=== PATIENT | male | born 2000 | race African-American/Black ===

== ENCOUNTER 2021-03-03 04:00 | Emergency (ER) | payer MEDICAID ==
[~2021-03-03] VITALS: Ht 182.9 cm; Wt 90.9 kg
[2021-03-03 04:06] VITALS: BP 131/78
== END 2021-03-03 06:02 | disposition home or self-care (01) ==
LOC: ER 04:01
DX: S82.831A Other fracture of upper and lower end of right fibula, initial encounter for closed fracture (principal); X58.XXXA Exposure to other specified factors, initial encounter; Y93.89 Activity, other specified; Y92.59 Other trade areas as the place of occurrence of the external cause; Y99.8 Other external cause status
CPT/HCPCS: 29515; 73610; 99284

== ENCOUNTER 2021-07-21 18:24 | Emergency (ER) | payer MEDICAID ==
[~2021-07-21] VITALS: Ht 182.9 cm; Wt 87.2 kg
[2021-07-21] MEDS ORDERED: ketorolac trometh inj. 60 MG/2 ML VIAL IM ONE (20:00)
[2021-07-21] MEDS ORDERED: acetaminophen 325mg tablet PO ONE (20:00)
== END 2021-07-21 20:41 | disposition home or self-care (01) ==
LOC: ER 18:25
DX: M25.512 Pain in left shoulder (principal); R07.89 Other chest pain
CPT/HCPCS: 71045; 73030; 96372; 99284; J1885